=== PATIENT | male | born 1965 | race African-American/Black ===

== ENCOUNTER 2019-11-13 18:53 | Emergency (ER) | payer MEDICARE, MEDICAID ==
[~2019-11-13] VITALS: Ht 182.9 cm; Wt 79.4 kg
[2019-11-13 19:04] VITALS: BP 141/85
[2019-11-13] MEDS ORDERED: IBUPROFEN 200 MG TABLET ONE (19:14)
[2019-11-13] MEDS ORDERED: IBUPROFEN 600 MG TABLET PO ONE (19:30)
--- NOTE | 2019-11-13 19:30 | NUR ---
Patient discharged to home in stable condition. Written and verbal after care instructions given. Patient verbalizes understanding of instruction.
== END 2019-11-13 19:32 | disposition home or self-care (01) ==
LOC: ER 19:00
DX: M79.672 Pain in left foot (principal); M79.671 Pain in right foot; Z59.0 Homelessness

== ENCOUNTER 2019-12-27 21:38 | Emergency (ER) | payer MEDICARE, OTHER ==
[~2019-12-27] VITALS: Ht 157.5 cm; Wt 99.8 kg
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
[2019-12-27] MEDS ORDERED: OLANZAPINE 5 MG TABLET PO ONE (23:00)
[2019-12-27 23:11] LABS: BASOPHILS # (AUTO) 0.1 /CMM (0.0-0.2); BASOPHILS % (AUTO) 0.7 % (0.0-2.0); EOSINOPHILS % (AUTO) 5.5 % (0.0-6.0); HEMATOCRIT 40 % (39-51); HEMOGLOBIN 12.9 g/dL (13.5-17.5); LYMPHOCYTES % (AUTO) 45.7 % (20.0-44.0); MEAN CORPUSCULAR HGB CONC 33 g/dl (31.0-36.0); MEAN CORPUSCULAR VOLUME 83 fL (80-96); MONOCYTES # (AUTO) 1.1 /CMM (0.1-1.30); MONOCYTES % (AUTO) 10.6 % (2.0-12.0); NEUTROPHILS # (AUTO) 4.1 /CMM (1.8-8.9); NEUTROPHILS % (AUTO) 37.5 % (43.0-81.0); PLATELET COUNT (AUTO) 234 /CMM (150-450); RED BLOOD CELL COUNT(AUTO) 4.76 MIL/uL (4.5-6.0); WHITE BLOOD COUNT (AUTO) 10.8 K/uL (4.3-11.0)
[2019-12-27 23:29] LABS: ALANINE AMINOTRANSFERASE 30 U/L (12-78); ALBUMIN 3.6 g/dL (3.4-5.0); ALCOHOL, BLOOD < 3 mg/dL (0-0); ALKALINE PHOSPHATASE 87 U/L (46-116); ASPARTATE AMINOTRANSFERASE 21 U/L (15-37); BILIRUBIN,TOTAL 0.2 mg/dL (0.2-1.0); CALCIUM, SERUM 8.5 mg/dL (8.5-10.1); CARBON DIOXIDE 25 mmol/L (21-32); CHLORIDE 104 mmol/L (98-107); CREATININE 0.9 mg/dL (0.6-1.3); GLUCOSE 99 mg/dL (74-106); POTASSIUM 3.6 mmol/L (3.5-5.1); SODIUM SERUM 139 mmol/L (136-145); TOTAL PROTEIN, SERUM 7.8 g/dL (6.4-8.2); UREA NITROGEN, BLOOD 15 mg/dL (7-18)
[2019-12-28 00:07] LABS: SALICYLATE 1.5 mg/dL (2.8-20.0)
[2019-12-28 00:08] LABS: ACETAMINOPHEN < 2 ug/ml (10-30)
--- NOTE | 2019-12-28 00:49 | NUR ---
URINE COLLECTED AND SENT WITH CEMENT BOAT AND BARGE LOADER.
[2019-12-28 01:05] LABS: BILIRUBIN,URINE Negative (NEGATIVE); BLOOD, URINE Trace-intact Ery/uL (NEGATIVE); COLOR,URINE Yellow (YELLOW); KETONES,URINE Negative (NEGATIVE); LEUKOCYTE ESTERASE ,URINE Trace (NEGATIVE); NITRITE, URINE Negative (NEGATIVE); PH,URINE 5.5 (5.0-8.0); PROTEIN,URINE Negative (NEGATIVE); UGLUCOSE Negative (NEGATIVE)
[2019-12-28 01:08] LABS: APPEARANCE,URINE HAZY (CLEAR)
[2019-12-28 01:57] LABS: BACTERIA,URINE Moderate /HPF (None Seen); MUCUS,URINE Moderate /LPF (None Seen); SQUAMOUS EPITHELIAL CELL,UR Few /HPF (None Seen); WBC,URINE 21-50 /HPF (0-3)
--- NOTE | 2019-12-28 02:30 | NUR ---
PATIENT IS SLEEPING. EASILY AROUSABLE THROUGH TOUCH AND VERBAL STIMULI. CONNECTED TO MONITOR. BREATHING EVENLY AND UNLABORED ON ROOM AIR. SITTER AT BEDSIDE.
--- NOTE | 2019-12-28 05:24 | NUR ---
PT ACCEPTED TO [facility] ACCEPTING MD: DR. SAINI NUMBER FOR REPORT: [phone] UNIT 2 AMDONALD ETA 6313
--- NOTE | 2019-12-28 05:46 | NUR ---
REPORT [facility]IV[facility]
[2019-12-28 06:26] VITALS: BP 128/66
== END 2019-12-28 07:57 ==
LOC: ER 21:42
DX: R45.851 Suicidal ideations (principal); Z59.0 Homelessness
CPT/HCPCS: 36415; 80048; 80076; 80305; 80307; 80329; 81001; 85025; 87086; 99285; G0480; 81000-TC

== ENCOUNTER 2020-02-04 23:20 | Emergency (ER) | payer MEDICARE, OTHER ==
[~2020-02-04] VITALS: Ht 188 cm; Wt 86.2 kg
[2020-02-04 23:30] VITALS: BP 139/85
--- NOTE | 2020-02-04 23:50 | NUR ---
Patient discharged to home in stable condition. Written and verbal after care instructions given. Patient verbalizes understanding of instruction.pt. ambulatory with a steady gait
== END 2020-02-04 23:50 | disposition home or self-care (01) ==
LOC: ER 23:22
DX: S90.822A Blister (nonthermal), left foot, initial encounter (principal); S90.821A Blister (nonthermal), right foot, initial encounter; Z59.0 Homelessness; X58.XXXA Exposure to other specified factors, initial encounter; Y93.01 Activity, walking, marching and hiking; Y92.89 Other specified places as the place of occurrence of the external cause; Y99.8 Other external cause status

== ENCOUNTER 2020-02-24 14:55 | Emergency (ER) | payer MEDICARE, OTHER ==
[~2020-02-24] VITALS: Ht 188 cm; Wt 90.7 kg
--- NOTE | 2020-02-24 15:10 | NUR ---
ADINA VILLATORO 878 From [employer] "Suicidal/Homicidal/angry No definite plan. Patient a/ox4, breathing even and unlabored, no sob noted, needs attended, kept comfortable. PD at bedside.
[2020-02-24] MEDS ORDERED: IV NS 0.9% 1,000 ML IV ONE (15:30)
[2020-02-24 15:33] LABS: BASOPHILS # (AUTO) 0.1 /CMM (0.0-0.2); BASOPHILS % (AUTO) 0.6 % (0.0-2.0); EOSINOPHILS % (AUTO) 1.6 % (0.0-6.0); HEMATOCRIT 46 % (39-51); HEMOGLOBIN 14.9 g/dL (13.5-17.5); LYMPHOCYTES # (AUTO) 3.2 /CMM (0.8-4.8); LYMPHOCYTES % (AUTO) 34.7 % (20.0-44.0); MEAN CORPUSCULAR HGB CONC 33 g/dl (31.0-36.0); MEAN CORPUSCULAR VOLUME 83 fL (80-96); MONOCYTES % (AUTO) 10.4 % (2.0-12.0); NEUTROPHILS # (AUTO) 4.9 /CMM (1.8-8.9); NEUTROPHILS % (AUTO) 52.7 % (43.0-81.0); PLATELET COUNT (AUTO) 277 /CMM (150-450); RED BLOOD CELL COUNT(AUTO) 5.49 MIL/uL (4.5-6.0); WHITE BLOOD COUNT (AUTO) 9.3 K/uL (4.3-11.0)
[2020-02-24 15:46] LABS: CALCIUM, SERUM 8.5 mg/dL (8.5-10.1); CREATININE 0.9 mg/dL (0.6-1.3); POTASSIUM 3.6 mmol/L (3.5-5.1)
[2020-02-24 15:49] LABS: SALICYLATE 2.7 mg/dL (2.8-20.0)
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
--- NOTE | 2020-02-24 16:14 | NUR ---
This SW spoke with JESSICA Zendejas regarding patient wanting to enter voluntary psychiatric treatment. JESSICA Zendejas informed this SW that some additional labs were needed and that she or another SALON STYLIST would fax over clinicals regarding this patient. This SW also notified JESSICA Zendejas that police wanted information regarding patient's voluntary treatment. This SW provided police with this information and informed them that this was [facility] Intake information: [facility] [address] [facility], [place] [address] Intake:
--- NOTE | 2020-02-24 16:48 | NUR ---
PATIENT RESTING, NO DISTRESS NOTED. VITALS STABLE.
[2020-02-24] MEDS ORDERED: DIVA500T2 PO (16:49)
[2020-02-24] MEDS ORDERED: MULT-24 PO (16:49)
[2020-02-24] MEDS ORDERED: IBUP-1955 PO (16:49)
[2020-02-24] MEDS ORDERED: LOSA25TA27 PO (16:49)
[2020-02-24] MEDS ORDERED: RISP0.2515 PO (16:49)
[2020-02-24] MEDS ORDERED: OMEG1CAP PO (16:49)
--- NOTE | 2020-02-24 17:00 | NUR ---
CALLED CRISIS TEAM ARMOND LOPEZ.
--- NOTE | 2020-02-24 18:30 | NUR ---
PINKY AT BEDSIDE FOR EVAL.
[2020-02-24] MEDS ORDERED: OLANZAPINE 10 MG VIAL IM ONE ×2 (18:58→19:00)
--- NOTE | 2020-02-24 19:36 | NUR ---
LAB CALLED REGARDING NEGATIVE COVID RESULT.
--- NOTE | 2020-02-24 19:43 | NUR ---
TRANSPORT CALLED ([facility]) ETA 2200.
--- NOTE | 2020-02-24 21:28 | NUR ---
REPORT GIVEN TO JESSICA BARRERA FROM [facility]
[2020-02-24 22:30] VITALS: BP 132/68
--- NOTE | 2020-02-24 22:32 | NUR ---
REPORT GIVEN TO AMMULBERRY 40 FOR CONTINUITY OF CARE. IV REMOVED, IV CATHETER INTACT. PRESSURE GAUZE APPLIED. NO ACTIVE BLEEDING. PER [facility] TOOK OVER CARE. VSS. PT TO BE TRANSFERRED TO [facility] VIA [facility]
--- NOTE | 2020-02-29 10:27 | NUR ---
[facility] RESULT FAXED TO JESUS LOPEZ PER REQUEST,FAX # [phone],TEL#[phone]
--- NOTE | 2020-03-06 11:50 | NUR ---
Patient is a 55-year-old Male. Patient is alert and oriented x4. Patient was receptive to speaking to this SW. SW asked patient to remove sheet from head and patient did as SW asked and made direct eye contact with this SW. Per MD note, patient was brought to [facility] ER for a psych eval Patient reports he is at [facility] through [facility]. Per patient, he has been on his own since he was 16 years old. Patient states that he is at [facility] ER is because of a lie that was told by other individuals ;however, patient did not want to report what this lie was to this SW. Patient states that he was diagnosed with schizophrenia at the age of 17 and is on medications, per patient I have all of them in my bag and pointed to his belongings. Patient denies alcohol and drug use. Patient reports cigarette use stating, I bought 4 packs yesterday and I have 3 right now. Patient denies auditory and visual hallucination. Patient denies suicidal and homicidal ideation at this time. Patient reports suicidal ideation in the past with plan to overdose on pills. This SW offered to call [employer] on behalf of the patient and patient denied stating I have been taking care of myself since I was 16 years old, I can take care of myself now. Per MD note, patient may be a candidate for [facility]. This SW to follow-up with Robyn in Intake 4250.
== END 2020-02-24 22:42 ==
LOC: ER 15:02
DX: R45.851 Suicidal ideations (principal); R45.850 Homicidal ideations; I10 Essential (primary) hypertension; F17.210 Nicotine dependence, cigarettes, uncomplicated; F99 Mental disorder, not otherwise specified; R94.31 Abnormal electrocardiogram [ECG] [EKG]; Z59.0 Homelessness; Z20.828 Contact with and (suspected) exposure to other viral communicable diseases
CPT/HCPCS: 36415; 80048; 80305; 80307; 80329; 85025; 87081; 87426; 93005; 96360; 99285; 99406; G0480; J3490; J7030; C9803-CS; U0003-CS

== ENCOUNTER 2020-03-06 03:38 | Inpatient (IN) | payer MEDICARE, OTHER ==
[~2020-03-06] VITALS: Ht 188 cm; Wt 90.3 kg
[~2020-03-06 03:38] MED LIST: DIVA500T2 PO; IBUP-1955 PO; LOSA25TA27 PO; MULT-24 PO; OMEG1CAP PO; RISP0.2515 PO
--- NOTE | 2020-03-06 03:50 | NUR ---
PT WAS BROUGHT IN ER BY RA 878 AND [employer] FOR PSYCH EVAL. [employer] WAS CALLED BY SECURITY AT [facility] AND PT WAS PLACED ON 5150 HOLD FOR DTS, DTO. PT IS CURRENTLY CALM. DENIED ANY PAIN OR DISCOMFORT. VSS. AFEBRILE. PT WAS PLACED IN BED 13 ON MONITOR. GOWNED UP AND ALL BELONGINGS WERE TAKEN AWAY. PT REMAINED ON CLOSE SUPERVISION OF A SITTER. SI PRECAUTION IMPLEMENTED. WILL CONT TO MONITOR.
[2020-03-06 04:19] LABS: BASOPHILS % (AUTO) 0.4 % (0.0-2.0); EOSINOPHILS % (AUTO) 0.7 % (0.0-6.0); HEMATOCRIT 45 % (39-51); HEMOGLOBIN 14.8 g/dL (13.5-17.5); LYMPHOCYTES # (AUTO) 2.3 /CMM (0.8-4.8); MEAN CORPUSCULAR HGB CONC 33 g/dl (31.0-36.0); MEAN CORPUSCULAR VOLUME 82 fL (80-96); MONOCYTES # (AUTO) 0.7 /CMM (0.1-1.30); MONOCYTES % (AUTO) 6.8 % (2.0-12.0); NEUTROPHILS # (AUTO) 7.3 /CMM (1.8-8.9); NEUTROPHILS % (AUTO) 70.1 % (43.0-81.0); PLATELET COUNT (AUTO) 234 /CMM (150-450); RED BLOOD CELL COUNT(AUTO) 5.46 MIL/uL (4.5-6.0); WHITE BLOOD COUNT (AUTO) 10.4 K/uL (4.3-11.0)
[2020-03-06 04:22] LABS: APPEARANCE,URINE CLEAR (CLEAR); BILIRUBIN,URINE NEGATIVE (NEGATIVE); BLOOD, URINE SMALL Ery/uL (NEGATIVE); COLOR,URINE YELLOW (YELLOW); KETONES,URINE TRACE (NEGATIVE); LEUKOCYTE ESTERASE ,URINE NEGATIVE (NEGATIVE); NITRITE, URINE NEGATIVE (NEGATIVE); PROTEIN,URINE NEGATIVE (NEGATIVE); UGLUCOSE NEGATIVE (NEGATIVE); UROBILINOGEN,URINE 0.2 EU/dL (0.2)
[2020-03-06 04:37] LABS: ACETAMINOPHEN 0 ug/ml (10-30); ALANINE AMINOTRANSFERASE 25 U/L (12-78); ALBUMIN 3.9 g/dL (3.4-5.0); ALCOHOL, BLOOD < 3 mg/dL (0-0); ALKALINE PHOSPHATASE 80 U/L (46-116); ASPARTATE AMINOTRANSFERASE 15 U/L (15-37); BILIRUBIN,DIRECT 0.1 mg/dL (0.0-0.2); BILIRUBIN,TOTAL 0.1 mg/dL (0.2-1.0); CALCIUM, SERUM 8.6 mg/dL (8.5-10.1); CARBON DIOXIDE 26 mmol/L (21-32); CHLORIDE 101 mmol/L (98-107); GLUCOSE 96 mg/dL (74-106); POTASSIUM 3.2 mmol/L (3.5-5.1); SALICYLATE 3.6 mg/dL (2.8-20.0); SODIUM SERUM 140 mmol/L (136-145); UREA NITROGEN, BLOOD 15 mg/dL (7-18)
[2020-03-06 04:50] LABS: BACTERIA,URINE Few /HPF (None Seen); SQUAMOUS EPITHELIAL CELL,UR Rare /HPF (None Seen)
--- NOTE | 2020-03-06 06:52 | NUR ---
Patient is resting comfortably in bed with eyes closed. Easily aroused. VSS
--- NOTE | 2020-03-06 08:17 | NUR ---
EJ SINHAW CALLED FOR EVAL AND PLACEMENT
--- NOTE | 2020-03-06 09:38 | NUR ---
This SW called Crisis Clinican Renee Rowley RN . SW not able to speak with Renee, left a voicemail. Will attempt again or call other Director Weights And Measures.
--- NOTE | 2020-03-06 09:44 | NUR ---
Crisis Clinican Renee Rowley RN contacted this SW. ETA 1 Hour
--- NOTE | 2020-03-06 10:30 | NUR ---
Canceled: Crisis Clinican Renee Rowley RN
--- NOTE | 2020-03-06 10:47 | NUR ---
ILEANA CALLED PT GOING TO GPS. DR. JAVED
--- NOTE | 2020-03-06 11:00 | NUR ---
MOVE SHEET SUBMITTED.
[2020-03-06] MEDS ORDERED: LISI-607 PO (11:07)
[2020-03-06] MEDS ORDERED: RISP2TAB23 PO (11:07)
[2020-03-06] MEDS ORDERED: DIVA500T54 PO (11:07)
[2020-03-06] MEDS ORDERED: ATOR20TA PO (11:38)
--- NOTE | 2020-03-06 12:37 | NUR ---
COVID RESULT: NEGATIVE
--- NOTE | 2020-03-06 13:56 | NUR ---
REPORT GIVEN TO [facility].
--- NOTE | 2020-03-06 13:58 | NUR ---
PATIENT TRANSFERRED TO ROOM 215A IN STABLE CONDITION. BELONGINGS TRANSFERRED TO FLOOR.
[2020-03-06] MEDS ORDERED: ACETAMINOPHEN 325 MG TABLET PO PRN (14:30)
[2020-03-06] MEDS ORDERED: MAG HYDROX/AL HYDROX/SIMETH 30 ML UDC PO PRN (14:30)
[2020-03-06] MEDS ORDERED: MAGNESIUM HYDROXIDE 30 ML UDC PO PRN (14:30)
--- NOTE | 2020-03-06 14:49 | NUR ---
[facility]PS ADMISSION NOTE: RECEIVED PATIENT E.R. PATIENT ADMITTED ON A 5150 HOLD FOR DTO, DTS PER HOLD PT SUFFERS FROM SCHIZOPHRENIA FELLING DEPRESSED AND SUICIDAL WITH NO PLAN.ATTEMPTED TO THROW A TRASH BIN AT THE ANOTHER PERSON . PATIENT UNABLE TO CONTRACT FOR SAFETY AT THIS TIME. THE 5150 WAS REVIEWED AND THE DOCUMENTATION IN THE 5150 HOLD APPEARS TO REFLECT THE PRESENTATION OF THE PATIENT. UPON FACE TO FACE ASSESSMENT PATIENT IS CURRENTLY LYING IN BED AWAKE, HAS NO S/S OR COMPLAINTS OF PAIN. PATIENT IS DISPLAYING NO S/S OF APPARENT DISTRESS. PATIENT BREATHING IS UNLABORED WITH EQUAL RISE AND FALL OF THE CHEST. PATIENT IS ALERT AND ORIENTATED X 3 ON ROOM AIR. PATIENT ASSISTED WITH TURING AND REPOSITIONING Q2HR AND PRN FOR COMFORT AND CIRCULATION. PATIENT HAS NO NEEDS AT THIS TIME. PATIENT IS NOTED TO BEING DELUSIONAL, DISHEVELED, DISORGANIZED, COOPERATIVE, AND NEEDS REDIRECTION. PATIENT DENIES SUICIDE IDEATIONS AND HOMICIDAL IDEATIONS AT THIS TIME. PATIENT IS UNDER THE PSYCHIATRIC CARE OF DR. JAVED AND THE MEDICAL CARE OF DR LAUREANO PATIENT BELONGINGS WERE INVENTORIED AND CHECKED FOR CONTRABAND. ALL CONTRABAND REMOVED AND STORED IN PATIENT HALLWAY LOCKER. PATIENT ADVANCED DIRECTIVES PREFERENCE, IMMUNIZATIONS QUESTIONER COMPLETED. PATIENT REFUSED PICTURES, SKIN ASSESSMENT, PATIENTS RIGHTS HANDBOOK, AND ALSO REFUSED TO SIGNS ALL PAPER WORK. PATIENT ORIENTATED TO ROOM, FLOOR, AND STAFF WITH ALL QUESTIONS ANSWERED. PATIENT EDUCATED ON THE USE OF THE CALL FISHER. PATIENT BED SIDE RAILS ARE UP X 2 FOR SAFETY. PATIENT BED IS LOCKED, LOW AND I WILL CONTINUE TO MONITOR THIS PATIENT Q 15 MIN WITH THE HELP OF STAFF TO MAINTAIN SAFETY.
[2020-03-06] MEDS ORDERED: BLOOD SUGAR DIAGNOSTIC 1 EACH STRIP IN ONE (15:30)
[2020-03-06 16:00] VITALS: BP 144/92
--- NOTE | 2020-03-06 16:57 | NUR ---
GPS RN NOTE: DR LAUREANO NOTIFIED OF PT SEIZURE D/O ON [place] TO RECONCILE HIS HOME MEDS, LABS, PT SMOKER 1 PACK A DAY . NEW ORDER T.O NICOTINE PATCH 21 MG DAILY ORDER PLACED AND CARED OUT . WILL CONTINUE MONITORING FOR SAFETY AND BEHAVIOR Q 15 MIN.
[2020-03-06] MEDS: clonazePAM 0.5 MG TABLET PO PRN (20:11)
--- NOTE | 2020-03-06 20:16 | NUR ---
GPS RN NOTE: ANXIETY PT WAS RESTLESS, ANXIOUS, IRRITABLE, ASKED IF HE WOULD LIKE SOMETHING FOR IT, STATED "YEAH GIVE IT TO ME". ADMIN PRN RAFIQ. WILL REASSESS CONTINUE TO MONITOR Q15MIN FOR SAFETY AND BEHAVIOR.
[2020-03-06] MEDS ORDERED: TEMAZEPAM 7.5 MG CAPSULE PO PRN (22:00)
[2020-03-06] MEDS: ATORVASTATIN 10 MG TABLET PO SCH (22:15)
[2020-03-07] MEDS: IBUPROFEN 600 MG TABLET PO PRN (06:19)
--- NOTE | 2020-03-07 06:20 | NUR ---
GPS RN NOTE: PAIN PT COMPLAINED OF 12/22 BILATERAL LEG PAIN ASKED IF HE CAN HAVE SOMETHING FOR IT, ADMIN MOTRIN 600MG PRN, WILL REASSESS AND CONTINUE TO MONITOR Q15MIN FOR SAFETY AND BEHAVIOR. Addendum: 03/07/20 at 0622 by FELICIANO STALLINGS RN ADMIN AT 618.
[2020-03-07 06:54] LABS: ALBUMIN 3.4 g/dL (3.4-5.0); BILIRUBIN,TOTAL 0.2 mg/dL (0.2-1.0); CALCIUM, SERUM 8.7 mg/dL (8.5-10.1); CREATININE 0.9 mg/dL (0.6-1.3); POTASSIUM 4.1 mmol/L (3.5-5.1); TOTAL PROTEIN, SERUM 7.2 g/dL (6.4-8.2)
[2020-03-07 07:01] LABS: CHOLESTEROL 139 mg/dL (<200); HDL CHOLESTEROL 43 mg/dL (40-60); LDL 79 mg/dL (0-99); TRIGLYCERIDES 116 mg/dL (30-150)
[2020-03-07 08:00] VITALS: BP 105/61
[2020-03-07] MEDS: clonazePAM 0.5 MG TABLET PO PRN (08:54)
[2020-03-07] MEDS: NICOTINE PATCH (21MG) 21 MG PATCH.TD24 TD SCH (08:54)
--- NOTE | 2020-03-07 08:54 | NUR ---
RN NOTE:Patient agitated medicated with klonopin 0.5mg x1 will continue to monitor .
--- NOTE | 2020-03-07 08:54 | NUR ---
JO COORDINATION OF CARE: SW contacted pts ed case manager at [facility], Natan Leon ([phone]) and left a voicemail for callback.
[2020-03-07] MEDS: LOSARTAN POTASSIUM 25 MG TABLET PO SCH (08:55)
[2020-03-07] MEDS: LISINOPRIL (5MG) 5 MG TABLET PO SCH (08:55)
--- NOTE | 2020-03-07 09:15 | NUR ---
INITIAL DISCHARGE NOTE: Pt is homeless and may need placement if he isn't able to return to [facility]. SW will help form a safe and proper discharge in collaboration with .
[2020-03-07] MEDS: DIVALPROEX SODIUM 250 MG TABLET.DR PO SCH ×2 (12:17→21:24)
[2020-03-07] MEDS: risperiDONE 1 MG TABLET PO SCH ×2 (14:41→20:59)
[2020-03-07 16:00] VITALS: BP 103/66
--- NOTE | 2020-03-07 19:48 | NUR ---
GPS RN NOTES PATIENT IN BED, ASLEEP, EASILY AROUSED. PATIENT IS ALERT AND ORIENTED X 2. BREATHING EVEN AND UNLABORED ON ROOM AIR. SHOWS NO SIGNS OF ACUTE RESPIRATORY DISTRESS, NO ACUTE PAIN. PT IS MED COMPLIANT. DENIES SI AND HI. SAFETY PRECAUTIONS IN PLACE. BED IN LOWEST POSITION, LOCKED, AND WILL CONTINUE TO MONITOR.
[2020-03-07 20:29] VITALS: BP 112/59
[2020-03-07] MEDS: ATORVASTATIN 10 MG TABLET PO SCH (21:24)
[2020-03-08] MEDS: IBUPROFEN 600 MG TABLET PO PRN (04:32)
--- NOTE | 2020-03-08 04:32 | NUR ---
GPS RN NOTES: HEADACHE PT C/O OF HEADACHE. OFFERED MOTRIN PRN ORDERED. PT AGREED AND TOLERATED MEDICATION WELL CONTINUE TO MONITOR
[2020-03-08 07:46] VITALS: BP 109/63
[2020-03-08 08:00] VITALS: BP 109/63
[2020-03-08] MEDS: risperiDONE 1 MG TABLET PO SCH ×2 (08:18→16:14)
[2020-03-08] MEDS: DIVALPROEX SODIUM 250 MG TABLET.DR PO SCH ×2 (08:18→21:55)
[2020-03-08] MEDS: LOSARTAN POTASSIUM 25 MG TABLET PO SCH (08:19)
[2020-03-08] MEDS: LISINOPRIL (5MG) 5 MG TABLET PO SCH (08:19)
[2020-03-08] MEDS: NICOTINE PATCH (21MG) 21 MG PATCH.TD24 TD SCH (08:20)
--- NOTE | 2020-03-08 10:05 | NUR ---
SW COORDINATION OF CARE: SW received a call from pts rn case management at [facility], Natan Leon ([phone]) who provided SW with collateral information. Per Natan, pt currently lives at [facility] Address: [address] [place] [address] under [facility]. He states that he believes pt is able to return and provided SW with the Pricing Director's contact information (Nevin Daugherty [phone]) . He also stated that pt is currently in the process of getting mental health services with [facility] Address: [address] [place] [address] and his logistics coordinator is Meggan Collazo ([phone]).
--- NOTE | 2020-03-08 10:12 | NUR ---
JO COORDINATION OF CARE: SW contacted [facility] Address: [address] [facility], [place] [address] and spoke with (Nevin Daugherty [phone]) who stated pt is able to return once stable for discharged and confirmed she will hold a bed for pt.
--- NOTE | 2020-03-08 10:19 | NUR ---
JO COORDINATION OF CARE: JO contacted cancer registry coordinator Meggan Collazo ([phone]) at [facility] Address: [facility] [place] [address] and left a voicemail requesting callback for coordination of care.
--- NOTE | 2020-03-08 13:55 | NUR ---
INDIVIDUAL INTERVENTION: SW met with pt to inform him of discharge plan. SW informed pt that he will be accepted back to [facility]. Pt was euthymic and stated he wanted to return. SW also provided pt with update regarding his psychiatric hold.
[2020-03-08 15:32] VITALS: BP 104/58
[2020-03-08 16:00] VITALS: BP 104/58
[2020-03-08 20:17] VITALS: BP 101/72
[2020-03-08] MEDS: ATORVASTATIN 10 MG TABLET PO SCH (21:56)
[2020-03-09] MEDS: IBUPROFEN 600 MG TABLET PO PRN (03:48)
--- NOTE | 2020-03-09 03:52 | NUR ---
GPS RN NOTE: PT COMPLAINED OF BLE'S PAIN LEVEL OF 7/10. MOTRIN 600MG GIVEN PO ORDERED AT 0348. PT IS CURRENTLY IN BED. WILL CONTINUE TO MONITOR.
--- NOTE | 2020-03-09 06:45 | NUR ---
GPS RN CLOSING NOTES: PT AWAKE, ALERT AND ORIENTED X2. PT SLEPT 7.5HRS THIS SHIFT. NO BEHAVIORAL ISSUES THIS SHIFT. CALM AND COOPERATIVE. USING W/C, RAMBLING SPEECH. NO S/S OF DISTRESS. MEDICATION COMPLIANT. ALL PT CARE NEEDS MET ANTICIPATED. WILL CONTINUE TO MONITOR AND ENDORSE TO AM SHIFT.
[2020-03-09 08:00] VITALS: BP 109/64
[2020-03-09] MEDS: DIVALPROEX SODIUM 250 MG TABLET.DR PO SCH ×2 (08:36→21:13)
[2020-03-09] MEDS: NICOTINE PATCH (21MG) 21 MG PATCH.TD24 TD SCH (08:36)
[2020-03-09] MEDS: LISINOPRIL (5MG) 5 MG TABLET PO SCH (08:36)
[2020-03-09] MEDS: risperiDONE 1 MG TABLET PO SCH ×2 (08:36→17:37)
[2020-03-09] MEDS: LOSARTAN POTASSIUM 25 MG TABLET PO SCH (08:37)
[2020-03-09 19:50] VITALS: BP 142/80
[2020-03-09] MEDS: ATORVASTATIN 10 MG TABLET PO SCH (21:13)
[2020-03-10] MEDS: IBUPROFEN 600 MG TABLET PO PRN (04:23)
--- NOTE | 2020-03-10 04:25 | NUR ---
GPS RN NOTE: PT COMPLAINED OF BLE'S PAIN LEVEL OF 7/10. MOTRIN 600MG GIVEN PO PRN ORDERED AT 0424. PT IS CURRENTLY IN BED. WILL CONTINUE TO MONITOR.
--- NOTE | 2020-03-10 06:43 | NUR ---
GPS RN CLOSING NOTES: PT AWAKE, ALERT AND ORIENTED X2. SLEPT 6HRS THIS SHIFT. NO BEHAVIORAL ISSUES. CALM AND COOPERATIVE. CURRENTLY IN SITTING ON W/C IN HALLWAY. NO S/S OF DISTRESS. MEDICATION COMPLIANT. ALL PT CARE NEEDS MET ANTICIPATED. WILL CONTINUE TO MONITOR AND ENDORSE TO AM SHIFT.
[2020-03-10 08:00] VITALS: BP 104/69
[2020-03-10] MEDS: LISINOPRIL (5MG) 5 MG TABLET PO SCH (10:17)
[2020-03-10] MEDS: DIVALPROEX SODIUM 250 MG TABLET.DR PO SCH ×3 (10:17→21:03)
[2020-03-10] MEDS: NICOTINE PATCH (21MG) 21 MG PATCH.TD24 TD SCH ×2 (10:17→10:27)
[2020-03-10] MEDS: LOSARTAN POTASSIUM 25 MG TABLET PO SCH (10:17)
[2020-03-10] MEDS: risperiDONE 1 MG TABLET PO SCH ×2 (11:00→17:53)
[2020-03-10 16:00] VITALS: BP 100/55
--- NOTE | 2020-03-10 18:00 | NUR ---
cooperative,med compliant.isolative.
[2020-03-10 20:20] VITALS: BP 112/61
[2020-03-10] MEDS: ATORVASTATIN 10 MG TABLET PO SCH (21:03)
[2020-03-11] MEDS: IBUPROFEN 600 MG TABLET PO PRN ×2 (05:22→16:01)
--- NOTE | 2020-03-11 05:23 | NUR ---
GPS-RN NOTE: C/O RIGHT LEG PAIN PATIENT C/O RIGHT LEG PAIN ON A PAIN SCALE OF 7/10. PT REQUESTED FOR MOTRIN. ADMINISTERED MOTRIN 600MG PO ORDERED. WILL CONTINUE TO REASSESS.
[2020-03-11 08:00] VITALS: BP 100/68
--- NOTE | 2020-03-11 08:36 | NUR ---
GPS RN NOTES PATIENT REFUSED NICOTINE PATCH DESPITE OF EXPLANATION OF RISKS AND BENEFITS, PATIENT SAID " I DON'T WANT IT"
[2020-03-11] MEDS: NICOTINE PATCH (21MG) 21 MG PATCH.TD24 TD SCH (08:38)
[2020-03-11] MEDS: DIVALPROEX SODIUM 250 MG TABLET.DR PO SCH ×2 (08:38→21:41)
[2020-03-11] MEDS: risperiDONE 1 MG TABLET PO SCH ×2 (08:38→16:07)
[2020-03-11] MEDS: LISINOPRIL (5MG) 5 MG TABLET PO SCH (08:39)
[2020-03-11] MEDS: LOSARTAN POTASSIUM 25 MG TABLET PO SCH (08:39)
[2020-03-11 16:00] VITALS: BP 113/76
--- NOTE | 2020-03-11 16:01 | NUR ---
GPS RN NOTES PATIENT COMPLAINT OF 5/10 BACK PAIN , ASKED FOR IBUPROfEN , GIVEN ORDERED. WILL CONTINUE TO MONITOR PATIENT.
[2020-03-11 19:55] VITALS: BP 115/54
[2020-03-11] MEDS: ATORVASTATIN 10 MG TABLET PO SCH (21:41)
[2020-03-12] MEDS: IBUPROFEN 600 MG TABLET PO PRN (03:21)
--- NOTE | 2020-03-12 06:35 | NUR ---
GPS RN CLOSING NOTES: PT AWAKE, ALERT AND ORIENTED X2. SITTING ON W/C IN HALLWAY, CALM. MED COMPLAINT, WEEKLY SKIN CHECK DONE AND PICTURES PLACED IN PT. CHART. PT SLEPT 5HRS THIS SHIFT. NO BEHAVIORAL ISSUES THIS SHIFT. NO S/S OF DISTRESS. RESPIRATION EVEN AND UNLABORED WITH EQUAL RISE AND FALL OF THE CHEST. ALL PT CARE NEEDS MET ANTICIPATED. WILL CONTINUE TO MONITOR AND ENDORSE TO AM SHIFT.
[2020-03-12 08:00] VITALS: BP 123/84
[2020-03-12 08:41] VITALS: BP 123/84
[2020-03-12] MEDS: LOSARTAN POTASSIUM 25 MG TABLET PO SCH (08:41)
[2020-03-12] MEDS: risperiDONE 1 MG TABLET PO SCH (08:41)
[2020-03-12] MEDS: LISINOPRIL (5MG) 5 MG TABLET PO SCH (08:41)
[2020-03-12] MEDS: DIVALPROEX SODIUM 250 MG TABLET.DR PO SCH (08:43)
[2020-03-12] MEDS: NICOTINE PATCH (21MG) 21 MG PATCH.TD24 TD SCH (08:46)
--- NOTE | 2020-03-12 09:00 | NUR ---
RN NOTE- PT ALERT ORIENTED PERSON PLACE TIME PURPOSE MED COMPLIANT PO INTAKE GOOD NO BEHAVIORAL ISSUES INTERACTIVE ENGAGES DENIES ALL
--- NOTE | 2020-03-12 09:40 | NUR ---
INDIVIDUAL INTERVENTION: JO met with pt to inform him of his scheduled Probable Cause Hearing on this day. Pt states he wishes to be discharged today and states he will be contesting his hold. JO provided pt with [facility] policy and planning manager's contact number.
--- NOTE | 2020-03-12 10:45 | NUR ---
JO COORDINATION OF CARE: SW contacted [facility] Address: [address] [facility], [place] [address] and spoke with (Nevin Daugherty [phone]) to inform her pt will be discharged on this present day. Nevin agreed with discharge plan and stated pt is able to go straight to his room.
--- NOTE | 2020-03-12 10:59 | NUR ---
JO COORDINATION OF CARE: JO contacted parks recreation coordinator Meggan Collazo ([phone]) at [facility] Address: [facility] [place] [address] who stated she will be scheduling an appointment for psychiatric follow up.
--- NOTE | 2020-03-12 11:02 | NUR ---
JO COORDINATION OF CARE: JO contacted pts caser up at [facility], Natan Smithes ([phone]) and informed him pt was being discharged on this present day. Natan stated he will follow up with pt at the [facility] [place].
--- NOTE | 2020-03-12 11:08 | NUR ---
JO COORDINATION OF CARE: SW received a call from therapy coordinator Meggan Collazo ([phone]) at [facility] Address: [address] [place], [place] [address] stating pt has a follow up appointment scheduled for Thursday03/14/20 at 8:00am.
--- NOTE | 2020-03-12 11:24 | NUR ---
DISCHARGE NOTE: Pt will be discharge at 1:00pm via (TAXI [facility]CHER) to [facility] Address: [address] [place] [address]. Pt has no family to contact. Pts mood is euthymic with congruent affect. Pt denies visual/auditory hallucinations and denies suicidal/homicidal ideation. Pt is alert and oriented x4 and is appropriately dressed and groomed. Pt will follow up with Psychiatrist: [facility] Address: [address] [place] [address] and has an appointment scheduled on Thursday03/14/20 at 8:00am. Pt will also follow up with [facility], located at [address] [place], [place] [address], [place] [address]; on 03/15/20 at 12:00pm. . The multidisciplinary exit care form was done, printed, signed, and given to the patient. Pt signed homeless waiver and he was provided with homeless resources.
--- NOTE | 2020-03-12 12:50 | NUR ---
WOMEN'S MINISTRY DIRECTOR NOTE- PT DC AT THIS TIME VIA PERSONAL WCR TO [employer] VIA TAXI VOUCHER AND TAXI. PT VS STABLE, ALERT ORIENTED TO PERSON PLACE TIME AND PURPOSE. COURT ORDERED PT RELEASED THIS MORNING. PT DENIES SI HI VH. DR JAVED GAVE ORDERS AND PRESCRIPTIONS. AFTER CARE REVIEWED W PT AND HE VERBALIZED UNDERSTANDING. VALUABLES RETURNED TO PT AND SIGNED FOR. ID [id number] REMOVED. ASSISTED TO LOBBY AND TAXI AT THIS TIME.
== END 2020-03-12 12:50 | disposition home or self-care (01) | DRG 885 ==
LOC: ER 03:39 → GPS 13:47
PROVIDERS: ADMIT Psychiatry & Neurology Psychiatry; ATTEND Nurse Practitioner Acute Care
DX: F20.9 Schizophrenia, unspecified (principal); G40.909 Epilepsy, unspecified, not intractable, without status epilepticus; F32.9 Major depressive disorder, single episode, unspecified; E87.6 Hypokalemia; Z59.0 Homelessness; I10 Essential (primary) hypertension; Z79.899 Other long term (current) drug therapy; F19.11 Other psychoactive substance abuse, in remission; F17.200 Nicotine dependence, unspecified, uncomplicated; J44.9 Chronic obstructive pulmonary disease, unspecified; Z91.14 Patient's other noncompliance with medication regimen
CPT/HCPCS: 36415; 80048-TC; 80053-TC; 80061-TC; 80076-TC; 80164-TC; 80305; 81000-TC; 82962-TC; 85025-TC; 87081-TC; 87086-TC; 97116-TC; 97530-TC; C9803-CS; G0480

== ENCOUNTER 2020-03-21 04:49 | Emergency (ER) | payer MEDICARE, OTHER ==
[~2020-03-21] VITALS: Ht 182.9 cm; Wt 84.8 kg
[~2020-03-21 04:49] MED LIST changes: +ATOR20TA PO; -DIVA500T2 PO; +LISI-607 PO; -MULT-24 PO; -OMEG1CAP PO; -RISP0.2515 PO
[2020-03-21 04:59] VITALS: BP 111/64
--- NOTE | 2020-03-21 05:00 | NUR ---
PT AAOX4. BIBRA C/O FROM STREET C/O SOB AND COUGH FOR THE PAST FEW DAYS. PT REQUESTING FOR MEDS DUE TO HIM RUNNING OUT OF MEDICATIONS. PT PLACED IN BED 6 ON MONITOR AND PULSE OX, VSS. NO ACUTE DISTRESS NOTED. AWAITING FOR MD FOR EVAL AND ORDERS.
[2020-03-21] MEDS ORDERED: IPRATROPIUM NEB FS 0.5 MG/2.5 ML AMPUL.NEB NEB ONE (05:30)
[2020-03-21] MEDS ORDERED: ALBUTEROL FS 2.5 MG/3 ML VIAL.NEB NEB ONE (05:30)
--- NOTE | 2020-03-21 05:39 | NUR ---
Patient discharged to home in stable condition. Written and verbal after care instructions given. Patient verbalizes understanding of instruction and RX. Pt ambulated with steady gait. vss.
--- NOTE | 2020-03-21 05:41 | NUR ---
UNABLE TO DISCHARGE DUE TO MEDITEC
== END 2020-03-21 05:41 | disposition home or self-care (01) ==
LOC: ER 04:53
DX: J45.909 Unspecified asthma, uncomplicated (principal); I10 Essential (primary) hypertension; G40.909 Epilepsy, unspecified, not intractable, without status epilepticus; F17.210 Nicotine dependence, cigarettes, uncomplicated; Z59.0 Homelessness

== ENCOUNTER 2020-07-28 21:31 | Inpatient (IN) | payer MEDICARE, OTHER ==
[~2020-07-28] VITALS: Ht 188 cm; Wt 79.8 kg
[~2020-07-28 21:31] MED LIST changes: -LISI-607 PO; +LISI-768 PO
--- NOTE | 2020-07-28 21:42 | NUR ---
PT NOHEMI FROM [facility] C/O HOMICIDAL IDEATION, REQUESTING VOLUNTARY ADMISSION TO PSYCH FACILITY. PT DENIES TO SPECIFY ON WHICH INDIVIDUAL. PT AAOX4. CALM AND COOPERATIVE. VITAL SIGNS STABLE. RESPIRATIONS EVEN AND UNLABORED. PT PLACED IN GOWN, BELONGINGS COLLECTED AND LOCKED IN PATIENT LOCKER. SITTER AT BEDSIDE, WILL CONTINUE TO MONITOR
--- NOTE | 2020-07-28 22:00 | NUR ---
ICD 9 CODER AT BEDSIDE FOR BLOOD DRAW
--- NOTE | 2020-07-28 22:05 | NUR ---
URINE COLLECTED, CALLED LAB FOR OPERATIONS BOARDMAN
--- NOTE | 2020-07-28 22:06 | NUR ---
[employer] AT BEDSIDE
--- NOTE | 2020-07-28 22:25 | NUR ---
COVID SWAB COLLECTED, CALLED LAB FOR MANUFACTURING ENGINEERING MANAGER
[2020-07-28 22:38] LABS: BASOPHILS # (AUTO) 0.1 /CMM (0.0-0.2); BASOPHILS % (AUTO) 0.7 % (0.0-2.0); EOSINOPHILS % (AUTO) 1.9 % (0.0-6.0); HEMATOCRIT 43 % (39-51); HEMOGLOBIN 14.1 g/dL (13.5-17.5); LYMPHOCYTES % (AUTO) 44.5 % (20.0-44.0); MEAN CORPUSCULAR HGB CONC 33 g/dl (31.0-36.0); MEAN CORPUSCULAR VOLUME 83 fL (80-96); MONOCYTES # (AUTO) 1.1 /CMM (0.1-1.30); MONOCYTES % (AUTO) 10.1 % (2.0-12.0); NEUTROPHILS # (AUTO) 4.8 /CMM (1.8-8.9); NEUTROPHILS % (AUTO) 42.8 % (43.0-81.0); PLATELET COUNT (AUTO) 249 /CMM (150-450); RED BLOOD CELL COUNT(AUTO) 5.19 MIL/uL (4.5-6.0); WHITE BLOOD COUNT (AUTO) 11.2 K/uL (4.3-11.0)
[2020-07-28 22:52] LABS: ALANINE AMINOTRANSFERASE 25 U/L (12-78); ALBUMIN 3.9 g/dL (3.4-5.0); ALCOHOL, BLOOD < 3 mg/dL (0-0); ALKALINE PHOSPHATASE 110 U/L (46-116); ASPARTATE AMINOTRANSFERASE 15 U/L (15-37); BILIRUBIN,TOTAL 0.1 mg/dL (0.2-1.0); CALCIUM, SERUM 8.8 mg/dL (8.5-10.1); CARBON DIOXIDE 28 mmol/L (21-32); CHLORIDE 104 mmol/L (98-107); CREATININE 0.9 mg/dL (0.6-1.3); GLUCOSE 105 mg/dL (74-106); POTASSIUM 3.4 mmol/L (3.5-5.1); SODIUM SERUM 142 mmol/L (136-145); TOTAL PROTEIN, SERUM 8.1 g/dL (6.4-8.2); UREA NITROGEN, BLOOD 10 mg/dL (7-18)
[2020-07-28 23:14] LABS: BILIRUBIN,URINE NEGATIVE (NEGATIVE); COLOR,URINE YELLOW (YELLOW); LEUKOCYTE ESTERASE ,URINE NEGATIVE (NEGATIVE); NITRITE, URINE NEGATIVE (NEGATIVE); PROTEIN,URINE NEGATIVE (NEGATIVE); UGLUCOSE NEGATIVE (NEGATIVE); UROBILINOGEN,URINE 0.2 EU/dL (0.2)
[2020-07-28 23:28] LABS: RBC,URINE 21-50 /HPF (0-2)
[2020-07-28 23:29] LABS: BACTERIA,URINE None seen /HPF (None Seen); SQUAMOUS EPITHELIAL CELL,UR Few /HPF (None Seen)
--- NOTE | 2020-07-28 23:53 | NUR ---
CALLED LOS INSPECTOR FINAL ASSEMBLY MECHANICAL. LEFT A MESSAGE.
--- NOTE | 2020-07-29 02:08 | NUR ---
BED ASSIGNMENT 211-1
[2020-07-29] MEDS ORDERED: DIVA250T4 PO (02:19)
--- NOTE | 2020-07-29 02:19 | NUR ---
MED LIST UPDATED.
[2020-07-29] MEDS ORDERED: TEMAZEPAM 7.5 MG CAPSULE PO PRN (03:30)
[2020-07-29] MEDS ORDERED: MAGNESIUM HYDROXIDE 30 ML UDC PO PRN (03:30)
[2020-07-29] MEDS ORDERED: MAG HYDROX/AL HYDROX/SIMETH 30 ML UDC PO PRN (03:30)
[2020-07-29] MEDS ORDERED: BLOOD SUGAR DIAGNOSTIC 1 EACH STRIP IN ONE (03:45)
[2020-07-29 04:47] VITALS: BP 131/72
--- NOTE | 2020-07-29 05:03 | NUR ---
GPS RN NOTES: RECEIVED PATIENT FROM ER/HOMELESS. PATIENT ARRIVED ON THIS UNIT AT 0315 VIA W/C WITH ER STAFF. PATIENT ADMITTED ON VOLUNTARY STATUS. PER ER REPORT, PATIENT PRESENTS TO ER AND ASKED FOR VOLUNTARY ADMISSION. PER PATIENT HE HAS NOT BEEN TAKING HIS MEDICATIONS, AND WAS ALSO TALKING ABOUT HOMICIDAL THOUGHTS TOWARDS A WOMAN AFFILIATED WITH [facility]. UPON FACE TO FACE EVALUATION, PATIENT PRESENTS A/O X3, FLAT AFFECT, DISHEVELED, COOPERATIVE. NO S/S OF DISTRESS. NO COMPLAINS OF PAIN. RESPIRATION EVEN AND UNLABORED WITH EQUAL RISE AND FALL OF THE CHEST ON ROOM AIR. PATIENT IS USING W/C. DENIES SUICIDAL AND HOMICIDAL IDEATIONS AT THIS TIME. PATIENT SIGNED ALL PAPER WORK, REFUSED MRSA, BS 133MG/DL. SKIN ASSESSMENT DONE AND PICTURES TAKEN AND PLACED IN PATIENT CHART. PATIENT RIGHTS BOOKLET GIVEN. PATIENT IS UNDER THE PSYCHIATRIC CARE OF [facility] AND MEDICAL CARE OF [facility]. BOTH DOCTORS INFORMED OF PATIENT ADMISSION. PATIENT BELONGINGS WERE INVENTORIED AND CHECKED FOR CONTRABAND. ALL CONTRABAND REMOVED AND STORED IN PATIENT HALLWAY LOCKER AND JOURNEYMAN CARPENTER'S SAFE. IMMUNIZATIONS QUESTIONER AND NECESSARY PAPER WORK COMPLETED. PATIENT ORIENTED TO ROOM, FLOOR AND STAFF WITH ALL QUESTIONS ANSWERED. PATIENT EDUCATED ON THE USE OF CALL FISHER. PATIENT BED SIDE RAILS UP X2 FOR SAFETY. PATIENT BED IS LOCKED AND IN LOWEST POSITION. Q15 MINUTES ROUNDS INITIATED. PATIENT CURRENTLY SLEEPING. WILL CONTINUE TO MONITOR PATIENT FOR SAFETY, MOOD, AND BEHAVIOR.
--- NOTE | 2020-07-29 06:32 | NUR ---
GPS RN CLOSING NOTES: PATIENT AWAKE, A/O X3. SLEPT 2 HR THIS SHIFT. NO BEHAVIORAL ISSUES THIS SHIFT. NO PRN MEDS THIS SHIFT. NO S/S OF DISTRESS. RESPIRATION EVEN AND UNLABORED WITH EQUAL RISE AND FALL OF THE CHEST ON ROOM AIR. SAFETY PRECAUTION MAINTAINED, BED IN LOWEST POSITION AND LOCKED. Q15 MINUTES SAFETY ROUND CONTINUED. ALL PATIENT CARE NEEDS MET ANTICIPATED. WILL CONTINUE TO MONITOR PATIENT FOR MOOD, BEHAVIOR AND SAFETY AND ENDORSE TO AM SHIFT.
[2020-07-29 08:00] VITALS: BP 110/70
[2020-07-29] MEDS: LORAZEPAM 0.5 MG TABLET PO PRN ×2 (08:49→08:53)
--- NOTE | 2020-07-29 08:49 | NUR ---
RN-CO: PATIENT IS AGITATED BUT REFUSED PO ATIVAN.
--- NOTE | 2020-07-29 08:53 | NUR ---
RNErikaCO: WITH THE HELP OF ANOTHER STAFF, PT TOOK ATIVAN 0.5 MG PO.
[2020-07-29] MEDS ORDERED: RISP0.2515 PO (09:01)
[2020-07-29] MEDS ORDERED: HYDR12.55 PO (09:01)
[2020-07-29] MEDS: DIVALPROEX SODIUM 500 MG TABLET.DR PO SCH ×2 (10:35→16:40)
[2020-07-29] MEDS: risperiDONE 1 MG TABLET PO SCH ×2 (10:35→16:40)
[2020-07-29] MEDS ORDERED: POTASSIUM CHLORIDE 20 MEQ TAB.PRT.SR PO ONE (12:30)
[2020-07-29] MEDS ORDERED: IBUPROFEN 600 MG TABLET PO PRN (12:30)
[2020-07-29 16:00] VITALS: BP 115/65
[2020-07-29] MEDS ORDERED: DIVALPROEX SODIUM 250 MG TABLET.DR PO SCH (17:00)
[2020-07-29 20:00] VITALS: BP 127/56
[2020-07-30] MEDS: ACETAMINOPHEN 325 MG TABLET PO PRN (04:43)
--- NOTE | 2020-07-30 04:45 | NUR ---
RN notes Pt is complaining of pain on R leg and requesting tylenol. Administered tylenol 650 mg/po/prn as ordered for pain per pt request. Will continue to monitor.
[2020-07-30 07:26] LABS: BASOPHILS # (AUTO) 0.1 /CMM (0.0-0.2); BASOPHILS % (AUTO) 0.7 % (0.0-2.0); EOSINOPHILS % (AUTO) 2.3 % (0.0-6.0); HEMATOCRIT 43 % (39-51); HEMOGLOBIN 13.8 g/dL (13.5-17.5); LYMPHOCYTES # (AUTO) 3.8 /CMM (0.8-4.8); LYMPHOCYTES % (AUTO) 44.1 % (20.0-44.0); MEAN CORPUSCULAR HGB CONC 32 g/dl (31.0-36.0); MEAN CORPUSCULAR VOLUME 84 fL (80-96); MONOCYTES # (AUTO) 0.7 /CMM (0.1-1.30); MONOCYTES % (AUTO) 8.2 % (2.0-12.0); NEUTROPHILS # (AUTO) 3.9 /CMM (1.8-8.9); NEUTROPHILS % (AUTO) 44.7 % (43.0-81.0); PLATELET COUNT (AUTO) 268 /CMM (150-450); RED BLOOD CELL COUNT(AUTO) 5.08 MIL/uL (4.5-6.0); WHITE BLOOD COUNT (AUTO) 8.7 K/uL (4.3-11.0)
[2020-07-30 08:00] VITALS: BP 114/76
[2020-07-30 08:10] LABS: CALCIUM, SERUM 9.1 mg/dL (8.5-10.1); CREATININE 0.9 mg/dL (0.6-1.3); POTASSIUM 4.7 mmol/L (3.5-5.1)
[2020-07-30] MEDS: risperiDONE 1 MG TABLET PO SCH ×2 (08:47→16:47)
[2020-07-30] MEDS: DIVALPROEX SODIUM 500 MG TABLET.DR PO SCH ×2 (08:48→16:47)
[2020-07-30] MEDS: LISINOPRIL (5MG) 5 MG TABLET PO SCH (08:48)
[2020-07-30] MEDS: HYDROCHLOROTHIAZIDE 25 MG TABLET PO SCH (08:48)
--- NOTE | 2020-07-30 09:00 | NUR ---
RN NOTE- PT IRRITABLE WANTS TO LEAVE. PT IS VOL. NOTIFIED DR MONTALVO. SHE SPOKE W PT ON TELEMED AND HE AGREED TO CONTINUE TAKING RX AND STAY A FEW DAYS TO STABILIZE. PT PO INTAKE GOOD DIRECTABLE MONITORING CLOSELY
[2020-07-30] MEDS ORDERED: risperiDONE 1 MG TABLET PO ONE (09:30)
[2020-07-30] MEDS ORDERED: DIVALPROEX SODIUM 250 MG TABLET.DR PO ONE (09:30)
[2020-07-30] MEDS ORDERED: LORAZEPAM 0.5 MG TABLET PO PRN (10:30)
[2020-07-30 16:00] VITALS: BP 113/77
[2020-07-30 20:00] VITALS: BP 117/62
--- NOTE | 2020-07-30 22:34 | NUR ---
RN NOTES: INSOMNIA PT. C/O UNABLE TO SLEEP RESTORIL 7.5 MG PO PRN GIVEN PER PT. REQUEST , WILL CONTINUE TO MONITOR.
--- NOTE | 2020-07-31 06:23 | NUR ---
RN NOTES: PATIENT RESTING IN ROOM. NO S/S OF DISTRESS. NO BEHAVIOR PROBLEMS NOTED, AND NO CHANGE OF CONDITION NOTED, SAFETY PRECAUTION MAINTAINED, ALL PATIENT CARE NEEDS MET AT THIS TIME. WILL CONTINUE TO MONITOR PATIENT FOR MOOD, BEHAVIOR AND SAFETY AND ENDORSE TO AM SHIFT FOR CONTINUITY CARE.
[2020-07-31 08:00] VITALS: BP 120/63
[2020-07-31] MEDS: risperiDONE 1 MG TABLET PO SCH (08:48)
[2020-07-31] MEDS: DIVALPROEX SODIUM 500 MG TABLET.DR PO SCH (08:49)
[2020-07-31] MEDS: LISINOPRIL (5MG) 5 MG TABLET PO SCH (08:50)
[2020-07-31] MEDS: HYDROCHLOROTHIAZIDE 25 MG TABLET PO SCH (08:50)
--- NOTE | 2020-07-31 09:00 | NUR ---
RN NOTE- PT CALM INTERACTIVE ALERT ORIENTED PERSON PLACE PURPOSE DENIES ALL FOCUS ON DC MED COMPLIANT
--- NOTE | 2020-07-31 12:20 | NUR ---
[facility] Softball Player: SW received a call from Bernice ([phone] ext [phone]), case hardener from [facility], who stated that she wanted to know how the pt is doing and what the discharge plan was. SW stated that the pt is a voluntary pt who states that he was living in a fpc on [facility] and he wants to go back there and they require a covid test. automation manager stated that she wanted to speak with the pt so the SW transferred the call.
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
[2020-07-31] MEDS: ACETAMINOPHEN 325 MG TABLET PO PRN (14:51)
--- NOTE | 2020-07-31 14:51 | NUR ---
RN NOTE- C/O PAIN RT LEG. TYLENOL 650 MG GIVEN
--- NOTE | 2020-07-31 15:05 | NUR ---
Initial Discharge Plan: Pt is currently homeless and states that he would like to be discharged to a homeless correction. SW will work with the pt and the MD regarding appropriate discharge planning. SW will form a safe and proper discharge.
--- NOTE | 2020-07-31 15:12 | NUR ---
RN NOTE- PT SPOKE W DR CAMARENA EXPRESSING DESIRE TO LEAVE FACILITY TODAY. PT TALKED WITH SW AND SW TRIED TO GET PT SITUATED AT A PLACE BUT PT INSISTS ON GOING TO [facility] IN [place]. DR CAMARENA NOTIFIED AND SINCE PT IS CALM ALERT ORIENTED DENIES SI HI AH VH AND DIRECTABLE, HE CAN GO AMA. HES VOLUNTARY STATUS ON GPS. WILL WORK W SW TO OBTAIN INFORMATION TO GET PT DC THIS AFTERNOON.
--- NOTE | 2020-07-31 15:35 | NUR ---
Discharge Note: Pt will be discharged to a placement of his own choosing against medical advice. Pt stated that he will be going towards [facility]. Pt states that he is aware of how to get to this location and informed the SW of how he would arrive. Pt was informed that the SW was unable to find a custodial that has a bed for him today but she informed him that she would call first thing in the morning and get him a bed the following day but the pt refused. Pt does not have any family to contact. Pt will be discharged at 4:30pm and pt will be transported via bus. Upon discharge, the pt appears to be in a euthymic mood and presents with a distressed affect. Pt denies both suicidal and homicidal ideation as well as auditory and visual hallucinations. Pt was provided with homeless resources such as shelters, food feng, showers, hot meals, health clinics, mental health clinics and substance abuse referrals. SW provided patient with the 2019 [facility] Long-Term Program list. SW provided patient with a copy of the [facility] homeless directory which provides information on locations for hot meals, sack lunches, food pantries, and showers. SW provided an additional list of mental health clinics: [facility] [address] [place] [address] ([phone]); [facility] [address] [place] [address] ([phone]); a list of medical clinics; [facility] [address] [facility] [address], [place]. [place], ; [facility] [place] [address] [facility], [address], [place]. SW Provided [facility] [address] [place] [address]: ([phone]). Patient was provided with a brief substance abuse intervention and referred to the following substance abuse programs: [facility] Substance Abuse Self-helpline ([phone]); [facility] [address] [place] [address] ([phone]); [facility] [address] [facility] [address] ([phone]); [facility] ([phone]); [facility] ([phone]); [facility] ([phone]); [facility] ([phone]). Pt was referred to [facility] Department of Mental Health located at [address] [place] [address]; ; fax was sent to: , for psychiatric services. Pt was also referred to [facility] located at [address], [place], [place]; ; for medical services. Pt signed the homeless waiver and the multidisciplinary exit care form was done, printed, signed, and given to the patient.
[2020-07-31 16:00] VITALS: BP 126/75
--- NOTE | 2020-07-31 16:10 | NUR ---
LIGHTING ADVISER AMA NOTE- PT DISCHARGED AT THIS TIME AMA. PT IS ALERT ORIENTED TO PERSON PLACE TIME AND PURPOSE. PT DENIES SI HI AH VH. DISCUSSED PT STAYING AND BENEFITS OF REMAINING IN DOCTORS CARE AT FACILITY. PT REFUSES AND INSISTS ON LEAVING TO LONG TERM. DC INSTRUCTIONS AND AFTERCARE PROVIDED. MENTAL HEALTH REFERRAL ADDRESSES AND NUMBERS PROVIDED. ID WRISTBAND REMOVED. REFUSED ALL VACCINES. NO SKIN ISSUES. MEDICATIONS RETURNED TO PT. VALUABLES RETURNED AND SIGNED FOR. ASSISTED TO GATHER BELONGINGS. ESCORTED OUT OF FACILITY BY THIS RN AND NEONATAL DOCTOR.
[2020-07-31] MEDS ORDERED: risperiDONE 1 MG TABLET PO SCH (17:00)
--- NOTE | 2020-07-31 17:09 | NUR ---
Radha Durham Rock Crushing Machine Operator: JO called Bernice ([phone] ext [phone]), rehabilitation caseworker from [facility], and informed her that the pt left AMA. She stated that she was grateful for the notification and that she will take over this case.
--- NOTE | 2020-07-31 17:11 | NUR ---
Radha Durham Therapist: JO called Radha Durham Therapist, Tejinder Brennan ([phone]), and informed him that the pt was discharged AMA and that the SW provided the pt with resources.
== END 2020-07-31 16:00 | disposition left against medical advice (07) | DRG 885 ==
LOC: ER 21:37 → GPS 07-29 02:19
PROVIDERS: ADMIT Psychiatry & Neurology Psychosomatic Medicine; ATTEND Nurse Practitioner Family
DX: F20.9 Schizophrenia, unspecified (principal); F29 Unspecified psychosis not due to a substance or known physiological condition; F41.9 Anxiety disorder, unspecified; F17.210 Nicotine dependence, cigarettes, uncomplicated; D72.829 Elevated white blood cell count, unspecified; E87.6 Hypokalemia; G40.909 Epilepsy, unspecified, not intractable, without status epilepticus; I10 Essential (primary) hypertension; J44.9 Chronic obstructive pulmonary disease, unspecified; Z20.822 Contact with and (suspected) exposure to COVID-19; Z79.899 Other long term (current) drug therapy; Z59.0 Homelessness; Z91.19 Patient's noncompliance with other medical treatment and regimen; Z86.718 Personal history of other venous thrombosis and embolism; R45.850 Homicidal ideations
CPT/HCPCS: 36415; 80048-TC; 80061-TC; 80076-TC; 81001; 82962-TC; 85025-TC; 87081-TC; 87086-TC; 93971-TC; 97112-TC; 97116-TC; 97530-TC; C9803; G0480

== ENCOUNTER 2020-09-11 03:52 | Emergency (ER) | payer MEDICARE, OTHER ==
[~2020-09-11] VITALS: Ht 188 cm; Wt 79.8 kg
[~2020-09-11 03:52] MED LIST changes: -ATOR20TA PO; +DIVA250T4 PO; +HYDR12.55 PO; -LOSA25TA27 PO
[2020-09-11] MEDS ORDERED: OLANZAPINE 5 MG TABLET ONE (04:25)
[2020-09-11 04:27] LABS: BASOPHILS # (AUTO) 0.1 /CMM (0.0-0.2); BASOPHILS % (AUTO) 0.5 % (0.0-2.0); EOSINOPHILS % (AUTO) 1.9 % (0.0-6.0); HEMATOCRIT 42 % (39-51); HEMOGLOBIN 13.8 g/dL (13.5-17.5); LYMPHOCYTES # (AUTO) 2.6 /CMM (0.8-4.8); LYMPHOCYTES % (AUTO) 26.9 % (20.0-44.0); MEAN CORPUSCULAR HGB CONC 33 g/dl (31.0-36.0); MEAN CORPUSCULAR VOLUME 83 fL (80-96); MONOCYTES % (AUTO) 9.8 % (2.0-12.0); NEUTROPHILS # (AUTO) 5.9 /CMM (1.8-8.9); NEUTROPHILS % (AUTO) 60.9 % (43.0-81.0); PLATELET COUNT (AUTO) 334 /CMM (150-450); RED BLOOD CELL COUNT(AUTO) 5.09 MIL/uL (4.5-6.0); WHITE BLOOD COUNT (AUTO) 9.7 K/uL (4.3-11.0)
[2020-09-11] MEDS ORDERED: OLANZAPINE 5 MG TABLET PO ONE (04:30)
[2020-09-11 04:47] LABS: ALANINE AMINOTRANSFERASE 26 U/L (12-78); ALBUMIN 4.1 g/dL (3.4-5.0); ALCOHOL, BLOOD < 3 mg/dL (0-0); ALKALINE PHOSPHATASE 88 U/L (46-116); ASPARTATE AMINOTRANSFERASE 19 U/L (15-37); BILIRUBIN,DIRECT 0.1 mg/dL (0.0-0.2); BILIRUBIN,TOTAL 0.2 mg/dL (0.2-1.0); CALCIUM, SERUM 9.4 mg/dL (8.5-10.1); CARBON DIOXIDE 29 mmol/L (21-32); CHLORIDE 104 mmol/L (98-107); CREATININE 0.9 mg/dL (0.6-1.3); GLUCOSE 93 mg/dL (74-106); SODIUM SERUM 141 mmol/L (136-145); TOTAL PROTEIN, SERUM 8.9 g/dL (6.4-8.2); UREA NITROGEN, BLOOD 14 mg/dL (7-18)
[2020-09-11 04:48] LABS: ACETAMINOPHEN 0 ug/ml (10-30)
[2020-09-11 05:51] LABS: BILIRUBIN,URINE NEGATIVE (NEGATIVE); COLOR,URINE YELLOW (YELLOW); LEUKOCYTE ESTERASE ,URINE NEGATIVE (NEGATIVE); NITRITE, URINE NEGATIVE (NEGATIVE); PROTEIN,URINE NEGATIVE (NEGATIVE); UGLUCOSE NEGATIVE (NEGATIVE); UROBILINOGEN,URINE 0.2 EU/dL (0.2)
[2020-09-11 14:38] VITALS: BP 141/77
== END 2020-09-11 15:19 ==
LOC: ER 03:54
DX: F32.9 Major depressive disorder, single episode, unspecified (principal); F25.9 Schizoaffective disorder, unspecified; R45.851 Suicidal ideations; G40.909 Epilepsy, unspecified, not intractable, without status epilepticus; Z59.0 Homelessness; F17.210 Nicotine dependence, cigarettes, uncomplicated; I10 Essential (primary) hypertension; Z20.822 Contact with and (suspected) exposure to COVID-19
CPT/HCPCS: 36415; 80048-TC; 80076-TC; 85025-TC; C9803; G0480

== ENCOUNTER 2020-12-11 18:09 | Emergency (ER) | payer MEDICARE, OTHER ==
[~2020-12-11] VITALS: Ht 188 cm; Wt 95.3 kg
--- NOTE | 2020-12-11 18:30 | NUR ---
CRAPS MANAGER AT BEDSIDE FOR BLOOD DRAW.
--- NOTE | 2020-12-11 18:32 | NUR ---
OR SELF PRESENTS TO ED C/O DEPRESSION AGRAVATED BY "ALL THIS CARRERO STUFF AND HIV", DENIES SI/HI GLUE BONE DRIER. PT IS RE[facility] PT IS AAOX3. DENIES ANY OTHER COMPLAINTS DURING INITIAL ASSESSMENT. AWAITING MD LOU.
--- NOTE | 2020-12-11 18:34 | NUR ---
DR DAY IN TO SEE PATIENT FOR EVAL.
[2020-12-11 18:35] LABS: BASOPHILS # (AUTO) 0.1 K/uL (0.0-0.2); BASOPHILS % (AUTO) 0.6 % (0.0-2.0); EOSINOPHILS % (AUTO) 2.1 % (0.0-6.0); HEMATOCRIT 40 % (39-51); HEMOGLOBIN 13.1 g/dL (13.5-17.5); LYMPHOCYTES # (AUTO) 3.8 K/uL (0.8-4.8); LYMPHOCYTES % (AUTO) 43.8 % (20.0-44.0); MEAN CORPUSCULAR HGB CONC 32 g/dl (31.0-36.0); MEAN CORPUSCULAR VOLUME 82 fL (80-96); MONOCYTES # (AUTO) 0.8 K/uL (0.1-1.30); MONOCYTES % (AUTO) 9.7 % (2.0-12.0); NEUTROPHILS # (AUTO) 3.8 K/uL (1.8-8.9); NEUTROPHILS % (AUTO) 43.8 % (43.0-81.0); PLATELET COUNT (AUTO) 247 K/uL (150-450); RED BLOOD CELL COUNT(AUTO) 4.92 MIL/uL (4.5-6.0); WHITE BLOOD COUNT (AUTO) 8.7 K/uL (4.3-11.0)
[2020-12-11 18:36] LABS: BILIRUBIN,URINE Negative (NEGATIVE); COLOR,URINE DARK YELLOW (YELLOW); LEUKOCYTE ESTERASE ,URINE Negative (NEGATIVE); NITRITE, URINE Negative (NEGATIVE); PROTEIN,URINE Negative (NEGATIVE); UGLUCOSE Negative (NEGATIVE); UROBILINOGEN,URINE 0.2 EU/dL (0.2)
[2020-12-11 18:44] LABS: CALCIUM, SERUM 8.4 mg/dL (8.5-10.1); CARBON DIOXIDE 27 mmol/L (21-32); CHLORIDE 107 mmol/L (98-107); GLUCOSE 82 mg/dL (74-106); POTASSIUM 3.6 mmol/L (3.5-5.1); SODIUM SERUM 143 mmol/L (136-145); UREA NITROGEN, BLOOD 13 mg/dL (7-18)
[2020-12-11 18:49] LABS: ALANINE AMINOTRANSFERASE 26 U/L (12-78); ALBUMIN 3.8 g/dL (3.4-5.0); ALKALINE PHOSPHATASE 78 U/L (46-116); ASPARTATE AMINOTRANSFERASE 18 U/L (15-37); BILIRUBIN,DIRECT 0.1 mg/dL (0.0-0.2); BILIRUBIN,TOTAL 0.3 mg/dL (0.2-1.0); TOTAL PROTEIN, SERUM 7.5 g/dL (6.4-8.2)
[2020-12-11 18:50] LABS: ACETAMINOPHEN < 0 ug/ml (10-30); ALCOHOL, BLOOD < 3 mg/dL (0-0)
[2020-12-11 19:14] LABS: BACTERIA,URINE None seen /HPF (None Seen); SQUAMOUS EPITHELIAL CELL,UR Few /HPF (None Seen); WBC,URINE 0-2 /HPF (0-3)
--- NOTE | 2020-12-11 19:40 | NUR ---
FACE SHEET AND CLINICALS WERE FAXED TO [facility]
--- NOTE | 2020-12-11 20:14 | NUR ---
[facility]
--- NOTE | 2020-12-11 21:36 | NUR ---
DR TERAN IS ACCEPTING MD. NUMBER FOR REPORT IS [id number]. PT WILL BE GOING TO UNIT 2.
--- NOTE | 2020-12-11 21:44 | NUR ---
CALLED [facility] ETA [phone]
[2020-12-11] MEDS ORDERED: ACETAMINOPHEN ES 500 MG TABLET ONE (21:50)
[2020-12-11 21:52] VITALS: BP 131/75
--- NOTE | 2020-12-11 21:57 | NUR ---
REPORT GIVEN TO OLIVIER LOPEZ FOR [facility]
[2020-12-11] MEDS ORDERED: ACETAMINOPHEN ES 500 MG TABLET PO ONE (22:00)
--- NOTE | 2020-12-11 23:04 | NUR ---
[facility] AT BED SIDE TO DEALER SUPPORT TECHNICIAN THE PT
--- NOTE | 2020-12-11 23:09 | NUR ---
PT TRANSFERED TO [facility].
== END 2020-12-11 23:28 ==
LOC: ER 18:14
DX: F32.9 Major depressive disorder, single episode, unspecified (principal); F14.10 Cocaine abuse, uncomplicated; I10 Essential (primary) hypertension; G40.909 Epilepsy, unspecified, not intractable, without status epilepticus; Z91.011 Allergy to milk products; Z59.0 Homelessness; F17.210 Nicotine dependence, cigarettes, uncomplicated; Z79.899 Other long term (current) drug therapy; Z20.822 Contact with and (suspected) exposure to COVID-19
CPT/HCPCS: 36415; 80048-TC; 80076-TC; 81001; 85025-TC; C9803; G0480

== ENCOUNTER 2020-12-31 04:56 | Emergency (ER) | payer BC, MEDICAID ==
[~2020-12-31] VITALS: Ht 190.5 cm; Wt 95.3 kg
--- NOTE | 2020-12-31 05:01 | NUR ---
PT AAOX4. BIBSELF C/O MED CLEARANCE VOL PSYCH, DEPRESSED AND HOMICIDAL WITH PLAN TO "KILL MY RECEPTION CENTRE MANAGER." AWAITING ER MD FOR EVAL AND ORDERS.
[2020-12-31 05:22] LABS: BASOPHILS % (AUTO) 0.5 % (0.0-2.0); EOSINOPHILS % (AUTO) 2.8 % (0.0-6.0); HEMATOCRIT 43 % (39-51); LYMPHOCYTES # (AUTO) 3.6 K/uL (0.8-4.8); MEAN CORPUSCULAR HGB CONC 33 g/dl (31.0-36.0); MEAN CORPUSCULAR VOLUME 82 fL (80-96); MONOCYTES # (AUTO) 0.8 K/uL (0.1-1.30); NEUTROPHILS # (AUTO) 3.1 K/uL (1.8-8.9); NEUTROPHILS % (AUTO) 39.7 % (43.0-81.0); PLATELET COUNT (AUTO) 291 K/uL (150-450); WHITE BLOOD COUNT (AUTO) 7.7 K/uL (4.3-11.0)
[2020-12-31 05:23] LABS: BILIRUBIN,URINE SMALL (NEGATIVE); COLOR,URINE YELLOW (YELLOW); LEUKOCYTE ESTERASE ,URINE NEGATIVE (NEGATIVE); NITRITE, URINE NEGATIVE (NEGATIVE); PROTEIN,URINE NEGATIVE (NEGATIVE); UGLUCOSE NEGATIVE (NEGATIVE); UROBILINOGEN,URINE 0.2 EU/dL (0.2)
--- NOTE | 2020-12-31 05:24 | NUR ---
URINE COLLECTED, SENT TO LAB.
--- NOTE | 2020-12-31 05:24 | NUR ---
ROBINID SWABBED, SENT TO LAB.
[2020-12-31 05:38] LABS: CALCIUM, SERUM 8.6 mg/dL (8.5-10.1); CARBON DIOXIDE 28 mmol/L (21-32); CHLORIDE 108 mmol/L (98-107); GLUCOSE 93 mg/dL (74-106); POTASSIUM 3.9 mmol/L (3.5-5.1); SODIUM SERUM 143 mmol/L (136-145); UREA NITROGEN, BLOOD 16 mg/dL (7-18)
[2020-12-31 05:44] LABS: ALANINE AMINOTRANSFERASE 28 U/L (12-78); ALBUMIN 3.8 g/dL (3.4-5.0); ALCOHOL, BLOOD < 3 mg/dL (0-0); ALKALINE PHOSPHATASE 72 U/L (46-116); ASPARTATE AMINOTRANSFERASE 17 U/L (15-37); BILIRUBIN,DIRECT 0.1 mg/dL (0.0-0.2); BILIRUBIN,TOTAL 0.4 mg/dL (0.2-1.0); TOTAL PROTEIN, SERUM 7.8 g/dL (6.4-8.2)
[2020-12-31 05:45] LABS: BACTERIA,URINE Few /HPF (None Seen); SQUAMOUS EPITHELIAL CELL,UR Few /HPF (None Seen)
[2020-12-31 05:46] LABS: MUCUS,URINE Many /LPF (None Seen)
[2020-12-31 05:53] LABS: ACETAMINOPHEN < 2 ug/ml (10-30)
--- NOTE | 2020-12-31 07:16 | NUR ---
FAXED CLINICALS TO [facility]
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
--- NOTE | 2020-12-31 11:15 | NUR ---
Uppers Edge Burnisher note: SW followed up with the patient to obtain more information on patient's previous statement of HI. Patient stated that he currently has a armor officer and reported that his name is, "Fab Hazel" ph:[phone]. SW asked the patient if he has any intent to harm his armor officer. Patient stated, "No! I'm just tired with [facility]." SW asked the patient if he has access to a firearm. Patient denied access to a firearm. Patient presented distressed and was tearful. Patient denied SI and HI. Clinicals have been faxed to [facility] for voluntary psychiatric admission.
--- NOTE | 2020-12-31 11:41 | NUR ---
PT ACCEPTED TO PENDING SALE TO [facility] UNDER DR. TERAN CALL [phone] UNIT TWO AFTER [phone]
--- NOTE | 2020-12-31 12:29 | NUR ---
CALLED [facility] FOR 1330 PICKUP.
--- NOTE | 2020-12-31 13:59 | NUR ---
CALLED [facility]RE[facility] MULLER [phone] SPOKE WITH HAND ASSEMBLER FOR PULLER OVER MANUELA AND INFORMED ABOUT THE PLAN OF THE PT. "KILL MY GAS METER READER"
[2020-12-31 14:08] VITALS: BP 122/71
--- NOTE | 2020-12-31 14:09 | NUR ---
[facility]
== END 2020-12-31 14:09 ==
LOC: ER 04:58
DX: F20.9 Schizophrenia, unspecified (principal); R45.850 Homicidal ideations; G40.909 Epilepsy, unspecified, not intractable, without status epilepticus; I10 Essential (primary) hypertension; Z91.011 Allergy to milk products; Z59.0 Homelessness; F17.210 Nicotine dependence, cigarettes, uncomplicated; Z79.899 Other long term (current) drug therapy
CPT/HCPCS: 36415; 80048; 80076; 80143; 80307; 80320; 81001; 85025; 87426; 99285; C9803; G0480

== ENCOUNTER 2021-03-29 18:33 | Emergency (ER) | payer BC, OTHER ==
[~2021-03-29] VITALS: Ht 188 cm; Wt 81.6 kg
--- NOTE | 2021-03-29 22:30 | NUR ---
covid swab done and sent to lab.
[2021-03-29] MEDS ORDERED: OLANZAPINE 5 MG TABLET ONE (22:39)
[2021-03-29 22:46] LABS: BILIRUBIN,URINE SMALL (NEGATIVE); COLOR,URINE YELLOW (YELLOW); LEUKOCYTE ESTERASE ,URINE Negative (NEGATIVE); NITRITE, URINE Negative (NEGATIVE); PH,URINE 5.5 (5.0-8.0); PROTEIN,URINE Negative (NEGATIVE); UGLUCOSE Negative (NEGATIVE); UROBILINOGEN,URINE 0.2 EU/dL (0.2)
[2021-03-29] MEDS ORDERED: OLANZAPINE 5 MG TABLET PO ONE (23:00)
[2021-03-29 23:10] LABS: ACETAMINOPHEN < 2 ug/ml (10-30); ALANINE AMINOTRANSFERASE 34 U/L (12-78); ALBUMIN 4.1 g/dL (3.4-5.0); ALCOHOL, BLOOD < 3 mg/dL (0-0); ALKALINE PHOSPHATASE 84 U/L (46-116); ASPARTATE AMINOTRANSFERASE 26 U/L (15-37); BILIRUBIN,DIRECT 0.1 mg/dL (0.0-0.2); BILIRUBIN,TOTAL 0.5 mg/dL (0.2-1.0); CALCIUM, SERUM 9.2 mg/dL (8.5-10.1); CARBON DIOXIDE 26 mmol/L (21-32); CHLORIDE 105 mmol/L (98-107); CREATININE 0.9 mg/dL (0.6-1.3); GLUCOSE 75 mg/dL (74-106); POTASSIUM 3.8 mmol/L (3.5-5.1); SODIUM SERUM 141 mmol/L (136-145); TOTAL PROTEIN, SERUM 8.6 g/dL (6.4-8.2); UREA NITROGEN, BLOOD 14 mg/dL (7-18)
[2021-03-29 23:53] LABS: BASOPHILS % (AUTO) 0.7 % (0.0-2.0); EOSINOPHILS % (AUTO) 2.4 % (0.0-6.0); HEMATOCRIT 41 % (39-51); HEMOGLOBIN 13.4 g/dL (13.5-17.5); LYMPHOCYTES # (AUTO) 3.6 K/uL (0.8-4.8); LYMPHOCYTES % (AUTO) 52.1 % (20.0-44.0); MEAN CORPUSCULAR HGB CONC 33 g/dl (31.0-36.0); MEAN CORPUSCULAR VOLUME 84 fL (80-96); MONOCYTES # (AUTO) 0.7 K/uL (0.1-1.30); MONOCYTES % (AUTO) 10.1 % (2.0-12.0); NEUTROPHILS # (AUTO) 2.4 K/uL (1.8-8.9); NEUTROPHILS % (AUTO) 34.7 % (43.0-81.0); PLATELET COUNT (AUTO) 248 K/uL (150-450); RED BLOOD CELL COUNT(AUTO) 4.92 MIL/uL (4.5-6.0); WHITE BLOOD COUNT (AUTO) 6.9 K/uL (4.3-11.0)
--- NOTE | 2021-03-30 00:19 | NUR ---
FACESHEET AND CLINICALS FAXED TO [facility].
--- NOTE | 2021-03-30 01:21 | NUR ---
ROBBIN DUMONT MD [facility] NUMBER [phone]
[2021-03-30 01:27] VITALS: BP 116/60
--- NOTE | 2021-03-30 01:33 | NUR ---
60- 70 MIN [facility]
== END 2021-03-30 03:09 ==
LOC: ER 18:42
DX: R45.851 Suicidal ideations (principal); R45.850 Homicidal ideations; G40.909 Epilepsy, unspecified, not intractable, without status epilepticus; I10 Essential (primary) hypertension; Z59.00 Homelessness unspecified; F17.210 Nicotine dependence, cigarettes, uncomplicated; Z20.822 Contact with and (suspected) exposure to COVID-19
CPT/HCPCS: 36415; 80048; 80076; 80143; 80307; 80320; 81003; 85025; 87426; 99285; C9803; G0480

== ENCOUNTER 2021-04-15 23:34 | Emergency (ER) | payer BC, OTHER ==
[~2021-04-15] VITALS: Ht 177.8 cm; Wt 77.1 kg
[2021-04-15 23:45] VITALS: BP 141/77
--- NOTE | 2021-04-16 03:13 | NUR ---
Patient discharged to home in stable condition. Written and verbal after care instructions given. Patient verbalizes understanding of instruction. Pt ambulatory with a steady gait
--- NOTE | 2021-04-16 03:33 | NUR ---
FOOD PROVIDED TO THE PATIENT UPON PATIENT'S REQUEST
== END 2021-04-16 03:33 | disposition home or self-care (01) ==
LOC: ER 23:37
DX: S92.591A Other fracture of right lesser toe(s), initial encounter for closed fracture (principal); M79.671 Pain in right foot; F25.9 Schizoaffective disorder, unspecified; I10 Essential (primary) hypertension; F17.210 Nicotine dependence, cigarettes, uncomplicated; Z59.00 Homelessness unspecified; Z91.011 Allergy to milk products; Z79.899 Other long term (current) drug therapy; X58.XXXA Exposure to other specified factors, initial encounter; Y93.89 Activity, other specified; Y92.89 Other specified places as the place of occurrence of the external cause; Y99.8 Other external cause status
CPT/HCPCS: 73630-TC

== ENCOUNTER 2021-05-09 03:45 | Emergency (ER) | payer BC, OTHER ==
[~2021-05-09] VITALS: Ht 188 cm; Wt 84.8 kg
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
[2021-05-09 04:56] LABS: BASOPHILS % (AUTO) 0.5 % (0.0-2.0); EOSINOPHILS % (AUTO) 3.4 % (0.0-6.0); HEMATOCRIT 43 % (39-51); HEMOGLOBIN 14.1 g/dL (13.5-17.5); LYMPHOCYTES # (AUTO) 3.6 K/uL (0.8-4.8); LYMPHOCYTES % (AUTO) 49.5 % (20.0-44.0); MEAN CORPUSCULAR HGB CONC 33 g/dl (31.0-36.0); MEAN CORPUSCULAR VOLUME 84 fL (80-96); MONOCYTES # (AUTO) 0.7 K/uL (0.1-1.30); MONOCYTES % (AUTO) 9.4 % (2.0-12.0); NEUTROPHILS # (AUTO) 2.7 K/uL (1.8-8.9); NEUTROPHILS % (AUTO) 37.2 % (43.0-81.0); PLATELET COUNT (AUTO) 291 K/uL (150-450); RED BLOOD CELL COUNT(AUTO) 5.13 MIL/uL (4.5-6.0); WHITE BLOOD COUNT (AUTO) 7.3 K/uL (4.3-11.0)
[2021-05-09 05:08] LABS: BILIRUBIN,URINE SMALL (NEGATIVE); COLOR,URINE DARK YELLOW (YELLOW); NITRITE, URINE NEGATIVE (NEGATIVE); PROTEIN,URINE 30 mg/dl (NEGATIVE); UGLUCOSE NEGATIVE (NEGATIVE)
[2021-05-09 05:10] LABS: CARBON DIOXIDE 31 mmol/L (21-32); CHLORIDE 105 mmol/L (98-107); GLUCOSE 101 mg/dL (74-106); POTASSIUM 3.9 mmol/L (3.5-5.1); SODIUM SERUM 143 mmol/L (136-145); UREA NITROGEN, BLOOD 8 mg/dL (7-18)
[2021-05-09 05:21] LABS: ALANINE AMINOTRANSFERASE 21 U/L (12-78); ALBUMIN 3.8 g/dL (3.4-5.0); ALCOHOL, BLOOD < 3 mg/dL (0-0); ALKALINE PHOSPHATASE 108 U/L (46-116); ASPARTATE AMINOTRANSFERASE 13 U/L (15-37); BILIRUBIN,DIRECT 0.1 mg/dL (0.0-0.2); BILIRUBIN,TOTAL 0.2 mg/dL (0.2-1.0); TOTAL PROTEIN, SERUM 8.3 g/dL (6.4-8.2)
[2021-05-09 05:26] LABS: ACETAMINOPHEN 0 ug/ml (10-30)
--- NOTE | 2021-05-09 06:10 | NUR ---
FACESHEET AND CLINICALS FAXED TO [facility].
[2021-05-09 06:22] LABS: BACTERIA,URINE Few /HPF (None Seen); LEUKOCYTE ESTERASE ,URINE 3+ (NEGATIVE); SQUAMOUS EPITHELIAL CELL,UR Few /HPF (None Seen); WBC,URINE TOO NUMEROUS TO COUN /HPF (0-3)
[2021-05-09] MEDS ORDERED: DIVALPROEX SODIUM 500 MG TABLET.DR PO ONE ×3 (10:25→12:38)
--- NOTE | 2021-05-09 10:27 | NUR ---
CALLED [facility] AND HAS AN ETA FOR [phone].
--- NOTE | 2021-05-09 10:41 | NUR ---
REPORT GIVEN TO CHARGE NURSE LASHELL AT [facility]. AWAITING TRANSPORT AMBULANCE.
[2021-05-09] MEDS ORDERED: DIVALPROEX SODIUM 500 MG TABLET.DR PO SCH (11:00)
--- NOTE | 2021-05-09 12:50 | NUR ---
PATIENT PICKED UP BY [facility] UNIT 295 IN STABLE CONDITION. PATIENT WILL BE TRANSPORTED TO [facility].
[2021-05-09 12:53] VITALS: BP 129/80
== END 2021-05-09 12:53 ==
LOC: ER 03:46
DX: R45.851 Suicidal ideations (principal); F22 Delusional disorders; Z20.822 Contact with and (suspected) exposure to COVID-19; Z59.01 Sheltered homelessness; F17.210 Nicotine dependence, cigarettes, uncomplicated; Z91.011 Allergy to milk products; G40.909 Epilepsy, unspecified, not intractable, without status epilepticus; I10 Essential (primary) hypertension; J45.909 Unspecified asthma, uncomplicated
CPT/HCPCS: 36415; 80048; 80076; 80143; 80164; 80307; 80320; 81001; 85025; 87077; 87086; 87186; 87426; 99285; C9803; G0480

== ENCOUNTER 2021-06-02 21:44 | Emergency (ER) | payer BC, OTHER ==
[~2021-06-02] VITALS: Ht 188 cm; Wt 93.0 kg
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
[2021-06-02 22:59] LABS: BASOPHILS # (AUTO) 0.1 K/uL (0.0-0.2); BASOPHILS % (AUTO) 0.6 % (0.0-2.0); EOSINOPHILS % (AUTO) 1.3 % (0.0-6.0); HEMATOCRIT 43 % (39-51); HEMOGLOBIN 14.2 g/dL (13.5-17.5); LYMPHOCYTES # (AUTO) 3.3 K/uL (0.8-4.8); LYMPHOCYTES % (AUTO) 35.9 % (20.0-44.0); MEAN CORPUSCULAR HGB CONC 33 g/dl (31.0-36.0); MEAN CORPUSCULAR VOLUME 83 fL (80-96); MONOCYTES # (AUTO) 0.7 K/uL (0.1-1.30); MONOCYTES % (AUTO) 8.1 % (2.0-12.0); NEUTROPHILS # (AUTO) 4.9 K/uL (1.8-8.9); NEUTROPHILS % (AUTO) 54.1 % (43.0-81.0); PLATELET COUNT (AUTO) 301 K/uL (150-450); RED BLOOD CELL COUNT(AUTO) 5.19 MIL/uL (4.5-6.0); WHITE BLOOD COUNT (AUTO) 9.1 K/uL (4.3-11.0)
[2021-06-02 23:00] LABS: BILIRUBIN,URINE NEGATIVE (NEGATIVE); COLOR,URINE YELLOW (YELLOW); LEUKOCYTE ESTERASE ,URINE NEGATIVE (NEGATIVE); NITRITE, URINE NEGATIVE (NEGATIVE); PH,URINE 5.5 (5.0-8.0); PROTEIN,URINE NEGATIVE (NEGATIVE); UGLUCOSE NEGATIVE (NEGATIVE); UROBILINOGEN,URINE 0.2 EU/dL (0.2)
[2021-06-02 23:32] LABS: ALANINE AMINOTRANSFERASE 23 U/L (12-78); ALKALINE PHOSPHATASE 87 U/L (46-116); ASPARTATE AMINOTRANSFERASE 18 U/L (15-37); BILIRUBIN,DIRECT 0.1 mg/dL (0.0-0.2); BILIRUBIN,TOTAL 0.3 mg/dL (0.2-1.0); CALCIUM, SERUM 8.7 mg/dL (8.5-10.1); CARBON DIOXIDE 29 mmol/L (21-32); CHLORIDE 103 mmol/L (98-107); GLUCOSE 89 mg/dL (74-106); POTASSIUM 3.5 mmol/L (3.5-5.1); SODIUM SERUM 138 mmol/L (136-145); TOTAL PROTEIN, SERUM 8.4 g/dL (6.4-8.2); UREA NITROGEN, BLOOD 11 mg/dL (7-18)
[2021-06-02 23:36] LABS: ACETAMINOPHEN 0 ug/ml (10-30); ALCOHOL, BLOOD < 3 mg/dL (0-0)
[2021-06-03] MEDS ORDERED: OLANZAPINE 10 MG VIAL IM ONE ×2 (01:26→01:30)
--- NOTE | 2021-06-03 01:38 | NUR ---
PT WANT VOLUNTARY PSYCH ADMISSION FOR FEELING SUICIDAL W/ SPECIFIC PLAN. PT IN SUICIDE PRECAUTION. PT IN GOWN, BELONGINGS PLACED IN LOCKER AND SITTER AT BEDSIDE.
--- NOTE | 2021-06-03 01:40 | NUR ---
COVID SWAB DONE
[2021-06-03 03:59] LABS: BACTERIA,URINE None seen /HPF (None Seen); SQUAMOUS EPITHELIAL CELL,UR Few /HPF (None Seen)
--- NOTE | 2021-06-03 04:03 | NUR ---
CLINICALS AND FACE SHEET FAXED TO [facility]
--- NOTE | 2021-06-03 06:30 | NUR ---
ACCORDING TO ART AT [facility] , PT GOT ACCEPTED AT [facility] UNDER THE CARE OF DR HELMS. UNIT 1. # FOR REPORT: [phone]
--- NOTE | 2021-06-03 06:38 | NUR ---
[facility] ETA:1200
--- NOTE | 2021-06-03 08:46 | NUR ---
BREAKFAST TRAY PROVIDED, TOLERATED WELL
--- NOTE | 2021-06-03 09:32 | NUR ---
REPORT GIVEN TO [facility] PINON [facility]
--- NOTE | 2021-06-03 12:06 | NUR ---
THE PATIENT IS SERVED LUNCH. TOLERATES PROVIDED MEAL WELL.
[2021-06-03 12:40] VITALS: BP 137/82
--- NOTE | 2021-06-03 13:20 | NUR ---
PICKED UP BY [facility] IN STABLE CONDITION
== END 2021-06-03 14:26 ==
LOC: ER 21:46
DX: F22 Delusional disorders (principal); R45.851 Suicidal ideations; Z59.00 Homelessness unspecified; F17.210 Nicotine dependence, cigarettes, uncomplicated; Z20.822 Contact with and (suspected) exposure to COVID-19; J45.909 Unspecified asthma, uncomplicated; I10 Essential (primary) hypertension; G40.909 Epilepsy, unspecified, not intractable, without status epilepticus; Z91.011 Allergy to milk products; Z79.899 Other long term (current) drug therapy
CPT/HCPCS: 36415; 80048; 80076; 80143; 80307; 80320; 81001; 85025; 87426; 96372; 99285; C9803; J3490; G0480